=== PATIENT | male | born 1955 | race Caucasian/White ===

== ENCOUNTER → 2017-10-02 08:37 | Outpatient (CLI) | payer BC, SELFPAY ==
[2017-10-02 10:00] LABS: Alanine Aminotransferase 35 IU/L (21-72); Aspartate Aminotransferase 25 IU/L (17-59); Cholesterol 249 mg/dL (140-199); HDL Cholesterol 52 mg/dL (40-60); LDL Cholesterol Calculated 169 mg/dL (<100); Triglycerides 142 mg/dL (35-150)
== END ==
PROVIDERS: PCP Family Medicine; Visit Provider Internal Medicine Cardiovascular Disease
DX: E78.2 Mixed hyperlipidemia (principal)
CPT/HCPCS: 36415; 80061; 82172; 84450; 84460

== ENCOUNTER → 2018-02-03 15:09 | Outpatient (CLI) | payer BC, SELFPAY ==
--- NOTE | 2018-02-03 15:16 | DI.RAD.S_ITS ---
PROCEDURE: XR CHEST 2V INDICATIONS: cough and fever TECHNIQUE: 2 views of the chest were acquired. COMPARISON: None. FINDINGS: Surgical changes and devices: Median sternotomy wires are again seen.. Lungs and pleura: No pleural effusions or pneumothorax. There is mild pulmonary vascular congestion. No definite focal infiltrate. Mediastinum: Mediastinal contours are normal. Heart size is normal. Bones and chest wall: No suspicious bony abnormalities. Soft tissues appear unremarkable. IMPRESSION: Mild congestion. No focal infiltrate or pneumothorax. Dictated by: Dong Meehan M.D. on 02/03/2018 at 16:15 Approved by: Dong Meehan M.D. on 02/03/2018 at 16:20
--- NOTE | 2018-02-03 15:16 | DI.RAD.S_ITS ---
PROCEDURE: XR KNEE RT 3V INDICATIONS: right knee pain TECHNIQUE: 3 views of the knee were acquired. COMPARISON: None. FINDINGS: Bones: No fractures or dislocations. No suspicious bony lesions. Moderate tricompartment osteoarthritis is seen prominent medial femorotibial compartment. No significant patellar subluxation. Soft tissues: Moderate joint effusion. No suspicious soft tissue calcifications. IMPRESSION: Moderate tricompartmental osteoarthritis and moderate amount of joint effusion. Dictated by: Dong Meehan M.D. on 02/03/2018 at 16:20 Approved by: Dong Meehan M.D. on 02/03/2018 at 16:20
== END ==
PROVIDERS: PCP Family Medicine; Visit Provider Family Medicine
DX: R05 Cough (principal); R50.9 Fever, unspecified; M25.561 Pain in right knee; M17.11 Unilateral primary osteoarthritis, right knee; M25.461 Effusion, right knee
CPT/HCPCS: 71046; 73562

== ENCOUNTER → 2018-09-25 09:37 | Outpatient (CLI) | payer MEDICARE, SELFPAY ==
[2018-09-28 15:40] LABS: Carbamazepine Tegretol Level 9.5 mg/L (4.0-12.0)
[2018-09-28 16:57] LABS: 1 25 Dihydroxy Vitamin D 43 pg/mL (18-72)
== END ==
PROVIDERS: PCP Family Medicine; Visit Provider Psychiatry & Neurology Neurology
DX: E55.9 Vitamin D deficiency, unspecified (principal); G40.109 Localization-related (focal) (partial) symptomatic epilepsy and epileptic syndromes with simple partial seizures, not intractable, without status epilepticus
CPT/HCPCS: 36415; 80156; 80171; 82652

== ENCOUNTER → 2020-07-20 12:19 | Outpatient (CLI) | payer MEDICARE, SELFPAY ==
[2020-07-20] MEDS: COVID-19 VACC #1, MRNA(MOD) 100 MCG/0.5 ML VIAL IM (12:31)
== END ==
PROVIDERS: PCP Family Medicine; Visit Provider Internal Medicine
DX: Z23 Encounter for immunization (principal)
CPT/HCPCS: 0011A; 91301

== ENCOUNTER → 2020-08-17 12:18 | Outpatient (CLI) | payer MEDICARE, SELFPAY ==
[2020-08-17] MEDS: COVID-19 VACC #2, MRNA(MOD) 100 MCG/0.5 ML VIAL IM (12:31)
== END ==
PROVIDERS: PCP Family Medicine; Visit Provider Internal Medicine
DX: Z23 Encounter for immunization (principal)
CPT/HCPCS: 0012A; 91301

== ENCOUNTER → 2020-09-02 09:29 | Outpatient (CLI) | payer MEDICARE, SELFPAY ==
[2020-09-02 10:48] LABS: Alanine Aminotransferase 38 IU/L (<50); Aspartate Aminotransferase 35 IU/L (17-59); Cholesterol 168 mg/dL (140-199); HDL Cholesterol 50 mg/dL (40-60); LDL Cholesterol Calculated 95 mg/dL (<100); Triglycerides 117 mg/dL (35-150)
[2020-09-03 04:36] LABS: Apolipoprotein B 93 mg/dL (<90)
== END ==
PROVIDERS: Referring Provider Internal Medicine Cardiovascular Disease; Visit Provider Internal Medicine Cardiovascular Disease
DX: E78.2 Mixed hyperlipidemia (principal)
CPT/HCPCS: 36415; 80061; 82172; 84450; 84460

== ENCOUNTER → 2021-03-13 16:19 | Outpatient (CLI) | payer MEDICARE, SELFPAY ==
[2021-03-13 16:42] LABS: Add Manual Diff / Slide Review NO; Basophils Absolute Auto 0 /uL (0-100); Basophils Percent Auto 0.7 % (0-2); Eosinophils Absolute Auto 200 /uL (0-450); Eosinophils Percent Auto 2.8 % (2-4); Hematocrit 36.3 % (41-53); Hemoglobin 12.5 g/dL (13.5-17.5); Lymphocytes Absolute Auto 2000 /uL (1100-4500); Lymphocytes Percent Auto 35.9 % (25-40); Mean Corpuscular HGB Conc 34.3 % (30-36); Mean Corpuscular Hemoglobin 32.4 PG (26-34); Mean Corpuscular Volume 94.4 fL (80-100); Monocytes Absolute Auto 300 /uL (0-900); Monocytes Percent Auto 5.9 % (3-14); Neutrophils Absolute Auto 3000 /uL (1500-7000); Neutrophils Percent Auto 54.7 % (50-75); Platelet Count 134 X10^3/uL (150-400); Red Blood Cell Count 3.84 X10^6/uL (4.5-5.9); Red Cell Distribution Width 12.8 % (11.6-14.8); White Blood Cell Count 5.4 X10^3/uL (4.5-11.0)
[2021-03-13 17:19] LABS: Alanine Aminotransferase 31 IU/L (<50); Albumin 4.5 g/dL (3.5-5.0); Albumin Globulin Ratio 1.7 (1.0-2.8); Alkaline Phosphatase 78 U/L (38-126); Aspartate Aminotransferase 33 IU/L (17-59); BUN Creatinine Ratio 21.3 (6-22); Bilirubin Total 0.2 mg/dL (0.2-1.3); Blood Urea Nitrogen 19 mg/dL (9-20); Carbon Dioxide 26 mmol/L (22-32); Chloride 108 mmol/L (98-107); Estimated Glomerular Filt Rate > 60.0 mL/min (>60); Globulin 2.6 g/dL (1.7-4.1); Glucose 133 mg/dL (80-110); HEMOLYSIS < 15 (0-50); Potassium 3.9 mmol/L (3.4-5.1); Sodium 143 mmol/L (137-145); Total Protein 7.1 g/dL (6.3-8.2)
[2021-03-14 03:11] LABS: Carbamazepine Tegretol Level 10.9 ug/mL (4.0-12.0)
[2021-03-17 10:09] LABS: 1,25-Dihydroxy, Vitamin D-2 <10 pg/mL (.)
== END ==
PROVIDERS: Referring Provider Psychiatry & Neurology Neurology; Visit Provider Psychiatry & Neurology Neurology
DX: G40.109 Localization-related (focal) (partial) symptomatic epilepsy and epileptic syndromes with simple partial seizures, not intractable, without status epilepticus (principal); E55.9 Vitamin D deficiency, unspecified; Z51.81 Encounter for therapeutic drug level monitoring
CPT/HCPCS: 36415; 80053; 80156; 82652; 85025

== ENCOUNTER → 2022-02-12 10:35 | Outpatient (CLI) | payer MEDICARE, SELFPAY ==
[2022-02-12 13:38] LABS: Add Manual Diff / Slide Review NO; Basophils Absolute Auto 0 /uL (0-100); Basophils Percent Auto 0.5 % (0-2); Eosinophils Absolute Auto 200 /uL (0-450); Eosinophils Percent Auto 3.8 % (2-4); Hematocrit 35.5 % (41-53); Hemoglobin 12.2 g/dL (13.5-17.5); Lymphocytes Absolute Auto 1500 /uL (1100-4500); Lymphocytes Percent Auto 34.4 % (25-40); Mean Corpuscular HGB Conc 34.4 % (30-36); Mean Corpuscular Hemoglobin 32.3 PG (26-34); Mean Corpuscular Volume 94.1 fL (80-100); Monocytes Absolute Auto 300 /uL (0-900); Monocytes Percent Auto 7.1 % (3-14); Neutrophils Absolute Auto 2300 /uL (1500-7000); Neutrophils Percent Auto 54.2 % (50-75); Platelet Count 124 X10^3/uL (150-400); Red Blood Cell Count 3.77 X10^6/uL (4.5-5.9); Red Cell Distribution Width 12.9 % (11.6-14.8); White Blood Cell Count 4.3 X10^3/uL (4.5-11.0)
[2022-02-12 14:16] LABS: Alanine Aminotransferase 31 IU/L (<50); Albumin 4.4 g/dL (3.5-5.0); Albumin Globulin Ratio 1.6 (1.0-2.8); Alkaline Phosphatase 89 U/L (38-126); Aspartate Aminotransferase 26 IU/L (17-59); BUN Creatinine Ratio 26.8 (6-22); Bilirubin Total 0.2 mg/dL (0.2-1.3); Blood Urea Nitrogen 19 mg/dL (9-20); Calcium 8.5 mg/dL (8.4-10.2); Carbon Dioxide 23 mmol/L (22-32); Chloride 109 mmol/L (98-107); Estimated Glomerular Filt Rate > 60 mL/min (>60); Globulin 2.7 g/dL (1.7-4.1); Glucose 101 mg/dL (80-110); HEMOLYSIS < 15 (0-50); Potassium 3.9 mmol/L (3.4-5.1); Sodium 142 mmol/L (137-145); Total Protein 7.1 g/dL (6.3-8.2)
[2022-02-13 05:21] LABS: Carbamazepine Tegretol Level 10.6 ug/mL (4.0-12.0)
[2022-02-19 10:38] LABS: 1,25-Dihydroxy, Vitamin D-2 <10 pg/mL (.)
== END ==
PROVIDERS: Referring Provider Psychiatry & Neurology Neurology; Visit Provider Psychiatry & Neurology Neurology
DX: G40.109 Localization-related (focal) (partial) symptomatic epilepsy and epileptic syndromes with simple partial seizures, not intractable, without status epilepticus (principal); E55.9 Vitamin D deficiency, unspecified; Z51.81 Encounter for therapeutic drug level monitoring
CPT/HCPCS: 36415; 80053; 80156; 82652; 85025

== ENCOUNTER → 2022-08-27 08:19 | Outpatient (CLI) | payer MEDICARE, SELFPAY ==
[2022-08-27 09:19] LABS: Cholesterol 143 mg/dL (140-199); HDL Cholesterol 42 mg/dL (40-60); LDL Cholesterol Calculated 59 mg/dL (<100); Triglycerides 212 mg/dL (35-150)
== END ==
PROVIDERS: Referring Provider Pharmacist; Visit Provider Pharmacist
DX: E78.9 Disorder of lipoprotein metabolism, unspecified (principal)
CPT/HCPCS: 36415; 80061

== ENCOUNTER → 2023-04-17 08:37 | Outpatient (CLI) | payer MEDICARE, SELFPAY ==
[2023-04-17 10:07] LABS: Add Manual Diff / Slide Review NO; Basophils Absolute Auto 0 /uL (0-100); Basophils Percent Auto 0.7 % (0-2); Eosinophils Absolute Auto 200 /uL (0-450); Eosinophils Percent Auto 3.7 % (2-4); Hemoglobin 12.5 g/dL (13.5-17.5); Lymphocytes Absolute Auto 1400 /uL (1100-4500); Lymphocytes Percent Auto 31.8 % (25-40); Mean Corpuscular HGB Conc 34.8 % (30-36); Mean Corpuscular Hemoglobin 32.7 PG (26-34); Mean Corpuscular Volume 94.2 fL (80-100); Monocytes Absolute Auto 400 /uL (0-900); Monocytes Percent Auto 8.6 % (3-14); Neutrophils Absolute Auto 2400 /uL (1500-7000); Neutrophils Percent Auto 55.2 % (50-75); Platelet Count 153 X10^3/uL (150-400); Red Blood Cell Count 3.82 X10^6/uL (4.5-5.9); Red Cell Distribution Width 13.7 % (11.6-14.8); White Blood Cell Count 4.3 X10^3/uL (4.5-11.0)
[2023-04-17 10:34] LABS: Alanine Aminotransferase 29 IU/L (<50); Albumin 4.4 g/dL (3.5-5.0); Albumin Globulin Ratio 1.5 (1.0-2.8); Alkaline Phosphatase 98 U/L (38-126); Aspartate Aminotransferase 27 IU/L (17-59); BUN Creatinine Ratio 15.7 (6-22); Bilirubin Total 0.6 mg/dL (0.2-1.3); Blood Urea Nitrogen 11 mg/dL (9-20); Calcium 9.4 mg/dL (8.4-10.2); Carbon Dioxide 25 mmol/L (22-32); Chloride 107 mmol/L (98-107); Estimated Glomerular Filt Rate > 60 mL/min (>60); Glucose 97 mg/dL (80-110); HEMOLYSIS < 15 (0-50); Potassium 4.2 mmol/L (3.4-5.1); Sodium 140 mmol/L (137-145); Total Protein 7.4 g/dL (6.3-8.2)
[2023-04-18 08:01] LABS: Carbamazepine Tegretol Level 10.8 ug/mL (4.0-12.0)
[2023-04-30 19:41] LABS: 1,25-Dihydroxy, Vitamin D-2 <10 pg/mL (.)
== END ==
PROVIDERS: PCP Internal Medicine; Referring Provider Psychiatry & Neurology Neurology; Visit Provider Psychiatry & Neurology Neurology
DX: E55.9 Vitamin D deficiency, unspecified (principal); G40.109 Localization-related (focal) (partial) symptomatic epilepsy and epileptic syndromes with simple partial seizures, not intractable, without status epilepticus; Z51.81 Encounter for therapeutic drug level monitoring
CPT/HCPCS: 36415; 80053; 80156; 82652; 85025

== ENCOUNTER → 2023-05-23 10:17 | Outpatient (CLI) | payer MEDICARE, SELFPAY ==
[2023-05-23 11:35] LABS: Cholesterol 199 mg/dL (140-199); HDL Cholesterol 53 mg/dL (40-60); LDL Cholesterol Calculated 119 mg/dL (<100); Triglycerides 134 mg/dL (35-150)
[2023-05-23 11:46] LABS: Free T4, Direct Thyroxine 0.66 ng/dL (0.78-2.19)
[2023-05-23 12:00] LABS: Thyroid Stimulating Hormone 2.57 uIU/mL (0.47-4.68)
== END ==
LOC: LAB 10:22
PROVIDERS: PCP Internal Medicine; Referring Provider Internal Medicine; Visit Provider Internal Medicine
DX: E78.5 Hyperlipidemia, unspecified (principal); I25.10 Atherosclerotic heart disease of native coronary artery without angina pectoris
CPT/HCPCS: 36415; 80061; 83036; 84439; 84443

== ENCOUNTER → 2023-10-14 10:09 | Outpatient (CLI) | payer MEDICARE, SELFPAY ==
[2023-10-14 11:12] LABS: Add Manual Diff / Slide Review NO; Basophils Absolute Auto 100 /uL (0-100); Eosinophils Absolute Auto 100 /uL (0-450); Eosinophils Percent Auto 2.9 % (2-4); Hematocrit 36.9 % (41-53); Hemoglobin 12.7 g/dL (13.5-17.5); Lymphocytes Absolute Auto 1800 /uL (1100-4500); Lymphocytes Percent Auto 37.8 % (25-40); Mean Corpuscular HGB Conc 34.6 % (30-36); Mean Corpuscular Hemoglobin 32.5 PG (26-34); Mean Corpuscular Volume 94.1 fL (80-100); Monocytes Absolute Auto 400 /uL (0-900); Monocytes Percent Auto 7.7 % (3-14); Neutrophils Absolute Auto 2500 /uL (1500-7000); Neutrophils Percent Auto 50.6 % (50-75); Platelet Count 141 X10^3/uL (150-400); Red Blood Cell Count 3.92 X10^6/uL (4.5-5.9); Red Cell Distribution Width 13.5 % (11.6-14.8); White Blood Cell Count 4.8 X10^3/uL (4.5-11.0)
[2023-10-14 11:14] LABS: Hemoglobin A1C% w Est Avg Glu 4.9 % (4.0-6.0)
[2023-10-14 11:20] LABS: BUN Creatinine Ratio 27.4 (6-22); Blood Urea Nitrogen 20 mg/dL (9-20); Calcium 8.4 mg/dL (8.4-10.2); Carbon Dioxide 24 mmol/L (22-32); Chloride 112 mmol/L (98-107); Estimated Glomerular Filt Rate > 60 mL/min (>60); Glucose 99 mg/dL (80-110); HEMOLYSIS < 15 (0-50); Potassium 4.3 mmol/L (3.4-5.1); Sodium 142 mmol/L (137-145)
[2023-10-14 11:31] LABS: Appearance Urine UA CLEAR; Bilirubin Urine UA NEGATIVE (NEGATIVE); Color Urine UA YELLOW; Glucose Urine UA NEGATIVE (Negative); Ketones Urine UA NEGATIVE (NEGATIVE); Leukocyte Esterase Urine UA NEGATIVE (NEGATIVE); Nitrite Urine UA NEGATIVE (Negative); Occult Blood Urine UA NEGATIVE (Negative); Protein Urine UA NEGATIVE (Negative); Specific Gravity Urine UA 1.025 (1.000-1.035); Urobilinogen Urine UA 0.2 E.U./dL (0.2)
[2023-10-14 11:37] LABS: Urine Volume 10mL (spun)
[2023-10-14 11:39] LABS: Bacteria Urine None Seen; Culture Indicated Urine Cult Not Indicated; RBC Urine None Seen (0-5/HPF); Squamous Epithelial Cell Urine None Seen (0-5/HPF); WBC Urine None Seen (0-5/HPF)
== END ==
PROVIDERS: PCP Internal Medicine; Referring Provider Orthopaedic Surgery; Visit Provider Orthopaedic Surgery
DX: Z01.818 Encounter for other preprocedural examination (principal); R73.9 Hyperglycemia, unspecified; Z01.812 Encounter for preprocedural laboratory examination; N39.0 Urinary tract infection, site not specified
CPT/HCPCS: 36415; 80048; 81001; 83036; 85025; 93005; 93010

== ENCOUNTER → 2024-02-20 09:16 | Outpatient (CLI) | payer MEDICARE, SELFPAY ==
[2024-02-20 10:51] LABS: Vitamin D 25 Hydroxy (D3) 65.6 ng/mL (30.0-100.0)
[2024-02-22 03:14] LABS: Carbamazepine Tegretol Level 11.5 ug/mL (4.0-12.0)
== END ==
LOC: LAB 09:20
PROVIDERS: PCP Internal Medicine; Referring Provider Psychiatry & Neurology Neurology; Visit Provider Psychiatry & Neurology Neurology
DX: E55.9 Vitamin D deficiency, unspecified (principal); G40.109 Localization-related (focal) (partial) symptomatic epilepsy and epileptic syndromes with simple partial seizures, not intractable, without status epilepticus
CPT/HCPCS: 36415; 80156; 82306

== ENCOUNTER → 2024-07-21 09:31 | Outpatient (CLI) | payer MEDICARE, SELFPAY ==
[2024-07-21 10:18] LABS: Add Manual Diff / Slide Review NO; Basophils Absolute Auto 100 /uL (0-100); Basophils Percent Auto 1.3 % (0-2); Eosinophils Absolute Auto 300 /uL (0-450); Eosinophils Percent Auto 7.1 % (2-4); Hematocrit 37.9 % (41-53); Hemoglobin 13.2 g/dL (13.5-17.5); Lymphocytes Absolute Auto 1400 /uL (1100-4500); Mean Corpuscular HGB Conc 34.8 % (30-36); Mean Corpuscular Hemoglobin 32.4 PG (26-34); Mean Corpuscular Volume 93.2 fL (80-100); Monocytes Absolute Auto 300 /uL (0-900); Monocytes Percent Auto 7.8 % (3-14); Neutrophils Absolute Auto 2300 /uL (1500-7000); Neutrophils Percent Auto 51.8 % (50-75); Platelet Count 137 X10^3/uL (150-400); Red Blood Cell Count 4.06 X10^6/uL (4.5-5.9); White Blood Cell Count 4.4 X10^3/uL (4.5-11.0)
[2024-07-21 10:43] LABS: Hemoglobin A1C% w Est Avg Glu 4.6 % (4.0-6.0)
[2024-07-21 11:28] LABS: Alanine Aminotransferase 32 IU/L (<50); Albumin 4.4 g/dL (3.5-5.0); Albumin Globulin Ratio 1.6 (1.0-2.8); Alkaline Phosphatase 115 U/L (38-126); Aspartate Aminotransferase 32 IU/L (17-59); BUN Creatinine Ratio 22.9 (6-22); Bilirubin Total 0.4 mg/dL (0.2-1.3); Blood Urea Nitrogen 16 mg/dL (9-20); Calcium 8.9 mg/dL (8.4-10.2); Carbon Dioxide 20 mmol/L (22-32); Chloride 104 mmol/L (98-107); Cholesterol 208 mg/dL (140-199); Estimated Glomerular Filt Rate > 60 mL/min (>60); Globulin 2.7 g/dL (1.7-4.1); Glucose 98 mg/dL (80-110); HDL Cholesterol 52 mg/dL (40-60); HEMOLYSIS 22 (0-50); LDL Cholesterol Calculated 132 mg/dL (<100); Potassium 4.6 mmol/L (3.4-5.1); Sodium 131 mmol/L (137-145); Total Protein 7.1 g/dL (6.3-8.2); Triglycerides 120 mg/dL (35-150)
== END ==
LOC: LAB 09:32
PROVIDERS: PCP Internal Medicine; Referring Provider Internal Medicine; Visit Provider Internal Medicine
DX: M17.11 Unilateral primary osteoarthritis, right knee (principal)
CPT/HCPCS: 36415; 80053; 80061; 83036; 85025

== ENCOUNTER 2024-09-09 16:36 | Emergency (ER) | payer MEDICARE, SELFPAY ==
[2024-09-09 16:58] VITALS: BP 127/61; PULSE 78; RESP 20; TEMP 36.4; O2SAT 100; BMI 29.9
--- NOTE | 2024-09-09 17:05 | DI.RAD.S_ITS ---
PROCEDURE: XR HAND LT MIN 3V INDICATIONS: cut hand with saw TECHNIQUE: 4 views of the hand(s) acquired. COMPARISON: None. FINDINGS: Bones: Comminuted oblique fracture involving 4th distal phalangeal shaft and tuft is seen with volar displacement at fracture site. No other fracture or dislocation. Carpal bones are normally aligned. No suspicious bony lesions. Soft tissues: No suspicious soft tissue calcifications. No radiopaque foreign body is seen. IMPRESSION: 1. Comminuted and displaced 4th distal phalangeal fracture as above. 2. No radiopaque foreign bodies are seen. Dictated by: Dong Meehan M.D. on 09/09/2024 at 17:29 Approved by: Dong Meehan M.D. on 09/09/2024 at 17:30
--- NOTE | 2024-09-09 20:37 | PC.NURSE ---
Patient called back into triage room for wound care. Patient has blood soaked T-shirt he is using as a dressing, this was removed and disposed of. Patient soaked left hand in Hibiclens/water, L 3rd and 4th digit then irrigated with NS to remove debris and clotted blood. Patient tolerating wound care well. Fingers wrapped in povidone-iodine/saline moist gauze and wrapped gently. There is no active bleeding at time dressing was applied. Patient sent back to lobby after wound care and dressing applied to await exam room.
[2024-09-09] MEDS: cephALEXin 250 MG CAPSULE 500 MG PO (22:32)
--- NOTE | 2024-09-10 00:14 | ED.UPPEXIN ---
HPI - Extremity Injury (Upper) General Chief Complaint: Extremity Injury, Upper Stated Complaint: fingers laceration Time Seen by Provider: 09/09/24 21:18 Mode of arrival: Ambulatory History of Present Illness HPI narrative: 69-year-old male sustained saw blade injury lacerations to the ends of his left ring finger and middle finger, also tiny finesse abrasions to the tip and of his 5th finger and index finger. No other injuries. He has not take blood thinner medications. Can not recall the date of his last tetanus shot. NKDA. Related Data Home Medications Medication Instructions Recorded Confirmed ascorbic acid (vitamin C) 500 mg 1,000 mg PO BID ##0 05/02/16 05/02/23 tablet aspirin 81 mg tablet,delayed 81 mg PO QDAY ##0 05/02/16 05/02/23 release magnesium oxide 400 mg (241.3 mg 400 mg PO ##0 05/02/16 05/02/23 magnesium) tablet pantoprazole 40 mg tablet,delayed 40 mg PO QDAY ##0 05/02/16 05/02/23 release evolocumab 420 mg/3.5 mL 420 mg SUBCUT QMONTH 02/19/18 05/02/23 subcutaneous wearable injector (Repatha Pushtronex) duloxetine 30 mg capsule,delayed mg PO 05/02/23 05/02/23 release Previous Rx's Medication Instructions Recorded metoprolol succinate 25 mg 25 mg PO DAILY #90 tabs 10/16/17 tablet,extended release 24 hr (Toprol XL) carbamazepine 400 mg 800 mg (2 x 400 mg) PO .COMPLEX 02/19/18 tablet,extended release,12 hr #180 tabs gabapentin 300 mg capsule 300 mg PO QDAY #90 caps 02/19/18 (Neurontin) carbamazepine (mood stabiliz) 200 200 mg PO .COMPLEX #270 tabs 06/17/18 mg capsule,extend release 12 hr(mood stabilizing) (Equetro) cephalexin 500 mg capsule 500 mg PO QID 7 days #28 caps 09/10/24 hydrocodone 5 mg-acetaminophen 325 1 tab PO Q6H PRN pain #14 tabs 09/10/24 mg tablet Allergies Allergy/AdvReac Type Severity Reaction Status Date / Time No Known Allergies Allergy Uncoded 05/02/23 09:10 Patient History Medical History Aortic stenosis (2016) Asthma CAD (coronary artery disease) (2016) GERD (gastroesophageal reflux disease) (2015) Hyperlipidemia Lumbar spinal stenosis Rheumatoid arthritis Seizures (1994) Surgical History Anesthesia History of back surgery (2010) History of heart bypass surgery (12/14/15) Family History Brother No problems noted. Brother No problems noted. Brother No problems noted. Father Heart disease Mother Heart disease Sister No problems noted. Sister No problems noted. Sister Breast cancer Social History Smoking Status: Current some day smoker Smoking Status: Current some day smoker Exam Narrative Exam Narrative: GENERAL: Well-developed patient, in mild distress. HEAD: Atraumatic. Normocephalic. EYES: Pupils equal round and reactive. Extraocular motions intact. No scleral icterus. No injection or drainage. ENT: Nose without bleeding, purulent drainage. Throat without erythema, tonsillar hypertrophy or exudate. Airway patent. NECK: Trachea midline. Non tender CARDIOVASCULAR: Regular rate and rhythm without murmurs, gallops, or rubs. RESPIRATORY: Clear to auscultation. Breath sounds equal bilaterally. No wheezes, rales, or rhonchi. GASTROINTESTINAL: Abdomen soft, non-tender, nondistended. EXTREMITIES: Left hand middle finger with mid distal 2cm laceration ulnar aspect finger. Left hand 4th/ring fingertip spiral curvilinear flap laceration with partial avulsion, no palpable or visible bone. BACK: Nontender without deformity or crepitance. No flank tenderness. NEURO: AOx3. Motor functions grossly nonfocal. SKIN: No rash or erythema of visible areas Initial Vital Signs Initial Vital Signs: Vital Signs Temperature 97.6 F 09/09/24 16:58 Pulse Rate 78 09/09/24 16:58 Respiratory Rate 20 09/09/24 16:58 Blood Pressure 127/61 09/09/24 16:58 Pulse Oximetry 100 09/09/24 16:58 Oxygen Delivery Method Room Air 09/09/24 16:58 Procedures Laceration Repair Laceration 1: Time of procedure: 02:35 Site: upper extremity (left middle finger) Side (If applicable): left Size (cm): 2 Description: linear (curvilinear) Depth: simple, single layer Local Anesthetic: bupivacaine 0.25% Amount of anesthesia used (mL): 3 Pre-repair: irrigated extensively Skin layer closed with: vicryl Skin layer suture size: 5-0 Number of sutures: 5 Technique: simple, interrupted Laceration 2: Time of procedure: 02:36 Site: upper extremity (left fourth ring finger) Side (If applicable): left Size (cm): 2.5 Description: linear (curvilinear) Depth: simple, single layer Local Anesthetic: bupivacaine 0.25% Amount of anesthesia used (mL): 2 Pre-repair: wound explored and irrigated extensively Skin layer closed with: nylon Skin layer suture size: 4-0 Number of sutures: 6 Technique: simple, interrupted Course Orders Ordered: Discontinued Medications Hydrocodone Bitart/Acetaminophen (Hydrocodone/Acet 5/325 Prepack) 1 bottle MISC DIRECTED ONE Stop: 09/10/24 02:44 Last Admin: 09/10/24 03:12 Dose: 1 bottle Documented By: Bacitracin (Bacitracin Oint 0.9 Gm Pckt) 5 applic TOP NOW ONE Stop: 09/10/24 02:51 Last Admin: 09/10/24 03:12 Dose: 5 applic Documented By: Bupivacaine HCl (Bupivacaine 0.5% Mdv) 5 ml INJ INTRA-OP ONE Stop: 09/10/24 00:17 Last Admin: 09/10/24 00:42 Dose: Not Given Documented By: YENI Bupivacaine HCl (Bupivacaine 0.5% (Pf) 30 Ml Vial) 30 ml INJ INTRA-OP ONE Stop: 09/10/24 00:23 Last Admin: 09/10/24 00:42 Dose: 30 ml Documented By: YENI Cephalexin HCl (Cephalexin 250 Mg Capsule) 500 mg PO NOW ONE Stop: 09/09/24 22:29 Last Admin: 09/09/24 22:32 Dose: 500 mg Documented By: WESLEY Diphtheria/Tetanus/Acell Pertussis (Tet,Diph,Pertuss(Acell),Vac/Pf 0.5 Ml Syringe) 0.5 ml IM .ONCE ONE Stop: 09/10/24 00:18 Last Admin: 09/10/24 00:21 Dose: 0.5 ml Documented By: YENI Lidocaine HCl (Lidocaine 1% 20 Ml) 20 ml INJ INTRA-OP ONE Stop: 09/10/24 00:17 Last Admin: 09/10/24 00:43 Dose: Not Given Documented By: YENI Lidocaine HCl (Lidocaine 1% (Pf) 5 Ml) 5 ml INJ NOW ONE Stop: 09/10/24 00:23 Last Admin: 09/10/24 00:42 Dose: 5 ml Documented By: YENI Vital Signs Vital signs: Vital Signs - 8 hr 09/10/24 00:33 09/10/24 03:19 Pulse Rate 75 71 Respiratory Rate 16 16 Blood Pressure 144/67 H 126/65 Pulse Oximetry 98 98 Oxygen Delivery Method Room Air Room Air MDM - Extremity Injury (Upper) MDM Narrative Medical decision making narrative: 69-year-old male with saw blade curvilinear lacerations middle left 3rd finger, worse fingertip avulsion laceration 4th finger. X-ray suspicious for distal phalanx comminuted fracture with angulation left ring finger. Case discussed with Orthopedic surgery Dr. Andreina Blackman, who advises primary closure in follow up in their clinic. Lacerations primarily repaired, see procedure notes. Patient informed distal fingertip might not take, could become infected, could require debridement, could require ultimate amputation or partial amputation. Nonstick Xeroform dressing with bulky Gilmer wrap applied. Follow up Orthopedic surgery Saturday tomorrow night for wound check in likely dressing change. Oral dose hydrocodone/acetaminophen, home pack hydrocodone/acetaminophen, prescription hydrocodone/acetaminophen sent to his pharmacy. Follow up with Orthopedic surgery advise tomorrow during regular hours. Discharge Plan Departure Patient Disposition: Home Clinical Impression: Laceration of finger of left hand Instructions: DI for Laceration Repair -- Finger, DI for Fracture Activity Restrictions/Additional Instructions: Laceration of the left 3rd and 4th fingers, more severe in the ring finger with avulsion injury fracture to the phalanx. No obvious bony fracture of the 3rd finger. Lacerations repaired. It is possible that the lacerations could become infected. It is possible there could be some tiny would/other retained foreign body fragments, although there was none radiographically identified. Would products did not show up usually on x-ray studies. It is possible that the tuft of the more severely injured finger could poorly take, and require open incision or even fingertip amputation revision in follow up. Wound check and dressing change advised Sylvain in clinic of orthopedic surgeon Dr. Blackman. She was contacted regarding the injury and sent x-rays for review. Oral antibiotic cephalexin given. Further antibiotics prescription sent to your pharmacy. Take antibiotics as prescribed. Take prescribed pain medications as needed for pain control. Keep left upper extremity elevated to reduce possibility of swelling. Wound check as above tomorrow Saturday advised with dressing change. Return earlier to this/nearest emergency department for any change worsening symptoms or any concerns prior. Prescriptions: New cephalexin 500 mg capsule 500 mg PO QID 7 Days Qty: 28 0RF hydrocodone-acetaminophen 5-325 mg tablet 1 tab PO Q6H PRN (Reason: pain) Qty: 14 0RF No Action duloxetine 30 mg capsule,delayed release(DR/EC) PO aspirin 81 MG tablet,delayed release (DR/EC) 81 mg PO QDAY Qty: 0 ascorbic acid (vitamin C) 500 MG tablet 1,000 mg PO BID Qty: 0 magnesium oxide 400 MG tablet 400 mg PO Qty: 0 pantoprazole 40 MG tablet,delayed release (DR/EC) 40 mg PO QDAY Qty: 0 metoprolol succinate [Toprol XL] 25 mg tablet extended release 24 hr 25 mg PO DAILY Qty: 90 3RF Rx Instructions: Take 1 tab by mouth daily Equetro 200 mg capsule, ER multiphase 12 hr 200 mg PO .COMPLEX Qty: 270 3RF Rx Instructions: 200 mg PO Take 3 tablets by mouth every morning; evolocumab [Repatha Pushtronex] 420 mg/3.5 mL wearable injector 420 mg SUBCUT QMONTH gabapentin [Neurontin] 300 mg capsule 300 mg PO QDAY Qty: 90 3RF carbamazepine 400 mg tablet extended release 12 hr 800 mg PO .COMPLEX Qty: 180 3RF Rx Instructions: take two tabs in the evening 800 mg Referrals: Marina Blackman MD [Physician] - Ian Corea DO [Primary Care Provider] - Stand Alone Forms: Patient Portal/API/Survey
[2024-09-10] MEDS: TET,DIPH,PERTUSS(ACELL),VAC/PF 0.5 ML SYRINGE IM (00:21)
[2024-09-10 00:33] VITALS: BP 144/67; PULSE 75; RESP 16; O2SAT 98
[2024-09-10] MEDS: BUPIVACAINE 0.5% (PF) 30 ML VIAL INJ (00:42)
[2024-09-10] MEDS: LIDOCAINE 1% (PF) 5 ML INJ (00:42)
[2024-09-10] MEDS: BACITRACIN OINT 0.9 GM PCKT 5 APPLIC TOP (03:12)
[2024-09-10] MEDS: HYDROCODONE/ACET 5/325 PREPACK 1 BOTTLE MISC (03:12)
--- NOTE | 2024-09-10 03:15 | PC.NURSE ---
Bacitracin and bandaid placed on pinky finger (1st & 5th finger) Xeroform, non-adhering gauze, 1 inch gauze wrap applied to finger (4th & 5th finger) Pt given some supplies in case bandages become soaked or fall off.
[2024-09-10 03:19] VITALS: BP 126/65; PULSE 71; RESP 16; O2SAT 98
== END 2024-09-10 03:19 | disposition home or self-care (01) ==
PROVIDERS: Emergency Provider Emergency Medicine; PCP Internal Medicine
DX: S61.213A Laceration without foreign body of left middle finger without damage to nail, initial encounter (principal); S61.215A Laceration without foreign body of left ring finger without damage to nail, initial encounter; W27.0XXA Contact with workbench tool, initial encounter; Z23 Encounter for immunization
CPT/HCPCS: 12002; 73130; 90471; 99283; 99284; 90715

== ENCOUNTER → 2024-11-18 08:31 | Outpatient (CLI) | payer MEDICARE, SELFPAY | LOC: WC 08:32 | PROVIDERS: Family Provider Internal Medicine; PCP Internal Medicine; Referring Provider Orthopaedic Surgery; Visit Provider Surgery | DX: T81.31XA Disruption of external operation (surgical) wound, not elsewhere classified, initial encounter (principal); S61.205A Unspecified open wound of left ring finger without damage to nail, initial encounter; R23.4 Changes in skin texture; E78.5 Hyperlipidemia, unspecified; I96 Gangrene, not elsewhere classified; M06.9 Rheumatoid arthritis, unspecified; Z86.79 Personal history of other diseases of the circulatory system; J45.909 Unspecified asthma, uncomplicated; I35.0 Nonrheumatic aortic (valve) stenosis | CPT/HCPCS: 11042; 99203; 99212 ==